=== PATIENT | male | born 1945 | race Caucasian/White ===

== ENCOUNTER 2016-10-28 08:50 | Observation (INO) | payer OTHER ==
[~2016-10-28] VITALS: Ht 180.3 cm; Wt 78.7 kg
[2016-10-28 08:50] VITALS: Ht 180.3 cm; Wt 78.7 kg
[~2016-10-28 08:50] MED LIST: ACET-2158 PO; ALBU8.5H3 IH; ARIP15TA4 PO; BACL10TA PO; IRBE150T19 PO; METH5SOL3 PO; METO-448 PO; MIRT15TA PO; MOM PO; NIT4 SL; SAME MEDS; SERT-165 PO; TEMA7.5C PO; WARF6TAB PO
[2016-10-28] MEDS ORDERED: ALBUTEROL 0.083% (NEB) 2.5 MG/3 ML AMP INH STA (09:04)
[2016-10-28] MEDS ORDERED: IPRATROPIUM (NEB) 0.5 MG/2.5 ML AMP INH STA (09:04)
--- NOTE | 2016-10-28 09:47 | RADRPT ---
PROCEDURE: XR Chest. CLINICAL INDICATION: SOB TECHNIQUE: Single frontal view of the chest was obtained. COMPARISON: Chest x-ray from 08/25/2013 FINDINGS: A left-sided single lead pacemaker is again noted. There is stable mild cardiomegaly. The aortic arch is calcified. There is mild to moderate pulmonary vascular congestion. Underlying bibasilar infiltrates cannot be entirely excluded. There is no significant pleural effusion or pneumothorax. IMPRESSION: Mild to moderate pulmonary vascular congestion. Underlying bibasilar infiltrates cannot be entirely excluded. Stable mild cardiomegaly. Left-sided pacemaker. Aortic atherosclerosis. RPTAT: EE Physician Luca Date Time Electronically viewed and signed by Sandip Bo Physician on 10/28/2016 09:47 RA/
[2016-10-28 09:49] LABS: ADD SCAN DIFF NO
[2016-10-28 09:51] LABS: BASOPHILS % 0.6 % (0.0-2.0); EOSINOPHILS # 0.1 10^3/ul (0.0-0.5); EOSINOPHILS % 1.9 % (0.0-7.0); HEMATOCRIT 40.1 % (42.0-52.0); HEMOGLOBIN 12.8 g/dl (14.0-18.0); LYMPHOCYTES # 0.9 10^3/ul (0.8-2.9); LYMPHOCYTES % 14.5 % (15.0-51.0); MEAN CORPUSCULAR HGB CONC 31.9 g/dl (32.0-37.0); MEAN CORPUSCULAR VOLUME 100.3 fl (82.0-101.0); MEAN PLATELET VOLUME 10.8 fl (7.4-10.4); MONOCYTE # 0.7 10^3/ul (0.3-0.9); MONOCYTES % 10.7 % (0.0-11.0); NEUTROPHIL # 4.5 10^3/ul (1.6-7.5); PLATELET COUNT 142 10^3/UL (140-415); RED CELL DISTRIBUTION WIDTH 13.5 % (11.5-14.5); WHITE BLOOD COUNT 6.3 10^3/ul (4.8-10.8)
[2016-10-28] MEDS ORDERED: CARV3.1260 PO (09:54)
[2016-10-28] MEDS ORDERED: CHOL100062 PO (09:54)
[2016-10-28] MEDS ORDERED: CLOB50SO TOP (09:55)
[2016-10-28] MEDS ORDERED: MOME13HF2 INHALATION (09:56)
[2016-10-28] MEDS ORDERED: MELA3TAB17 PO (09:57)
[2016-10-28] MEDS ORDERED: KETO120S2 TOP (09:57)
[2016-10-28] MEDS ORDERED: MIRT7.5T8 PO (09:58)
[2016-10-28] MEDS ORDERED: NYST15CR28 TOP (09:59)
[2016-10-28] MEDS ORDERED: FUROSEMIDE 40 MG INJ IV ONE (10:00)
[2016-10-28] MEDS ORDERED: QUET100T32 PO (10:00)
[2016-10-28] MEDS ORDERED: RIVA15TA PO (10:00)
[2016-10-28] MEDS ORDERED: SERT50TA6 PO (10:00)
[2016-10-28] MEDS ORDERED: SPIR50TA PO (10:01)
[2016-10-28] MEDS ORDERED: SPIR25TA PO (10:02)
[2016-10-28] MEDS ORDERED: TIOT18CA INHALATION (10:02)
[2016-10-28] MEDS ORDERED: TRAM-40 PO (10:04)
[2016-10-28 10:10] LABS: ALANINE AMINOTRANSFERASE 27 IU/L (13-69); ALBUMIN 4.6 g/dl (3.3-4.9); ALBUMIN/GLOBULIN RATIO 1.64; ALKALINE PHOSPHATASE 58 IU/L (42-121); ANION GAP 12 (8-16); ASPARTATE AMINO TRANSFERASE 19 IU/L (15-46); BILIRUBIN,INDIRECT 0.5 mg/dl (0-1.1); BILIRUBIN,TOTAL 0.5 mg/dl (0.2-1.3); BLOOD UREA NITROGEN 11 mg/dl (7-20); CALCIUM 8.8 mg/dl (8.4-10.2); CARBON DIOXIDE 27 mmol/L (21-31); CHLORIDE 107 mmol/L (97-110); CREATININE 0.98 mg/dl (0.61-1.24); GLUCOSE 153 mg/dl (70-220); POTASSIUM 4.1 mmol/L (3.5-5.1); SODIUM 142 mmol/L (135-144); TOTAL PROTEIN 7.4 g/dl (6.1-8.1)
[2016-10-28 10:29] LABS: TROPONIN-I < 0.012 ng/ml (0.00-0.12)
[2016-10-28 10:31] LABS: INR 1.64; PROTIME 19.5 Sec (12.2-14.2); PT RATIO 1.5
[2016-10-28 10:34] LABS: D-DIMER 560.71 ng/ml (<460)
--- NOTE | 2016-10-28 10:45 | ERA ---
ER Documentation Chief Complaint Date/Time DATE: 10/28/16 TIME: 902 Chief Complaint BIBA to room with complaint of SOB and epigastric discomfort HPI 71-year-old male brought to the emergency department from his care facility for evaluation of shortness of breath. Patient seems to have an underlying psychiatric component and provides only limited history. According to the paramedics, patient was short of breath but no further history was available. There is no mention of fevers, chills, sputum production, chest pain. The triage note indicates epigastric discomfort which the patient has not described to me. Paramedics thought he was "gasping" but was otherwise stable was brought to the emergency department for evaluation. I have reviewed the rater associate pre-hospital care. Pre-hospital vital signs were reviewed. Pre-hospital diagnostic tests were reviewed. ROS All systems reviewed and are negative except as per history of present illness. Medications Home Meds Reported Medications Tramadol Hcl* (Ultram*) 50 Mg Tablet, 50 MG PO BID Y for PAIN, TAB 10/28/16 Tiotropium [place]* (Spiriva*) 18 Mcg Cap.w.dev, 1 CAP INHALATION DAILY, #30 CAP 10/28/16 Spironolactone* (Aldactone*) 25 Mg Tablet, 25 MG PO DAILY, #30 TAB 10/28/16 Sertraline Hcl* (Sertraline Hcl*) 50 Mg Tablet, 50 MG PO DAILY, #30 TAB 10/28/16 Rivaroxaban* (Xarelto*) 15 Mg Tablet, 15 MG PO WITH BREAKFAST DINNE, TAB 10/28/16 Quetiapine Fumarate* (Quetiapine Fumarate*) 100 Mg Tablet, 100 MG PO HS, TAB 10/28/16 Nystatin* (Nystatin*) 15 Gm Cr, 1 APPLIC TOP BID, #1 TUB 10/28/16 Mirtazapine* (Mirtazapine*) 7.5 Mg Tablet, 7.5 MG PO HS, TAB 10/28/16 Melatonin (Melatonin) 3 Mg Tablet.sa, 3 MG PO HS, TAB.SA 10/28/16 Ketoconazole* (Ketoconazole*) 2% - 120 Ml Shampoo, 1 APPLIC TOP DAILY, EA WASH HAIR/SCALP AND RINSE OFF 10/28/16 Mometasone-Formoterol (Dulera) 100-5 Mcg - 13 Gm Hfa.aer.ad, 2 PUFFS INHALATION BID, #1 INHALER 10/28/16 Clobetasol Propionate* (Clobetasol Propionate*) 50 Ml Solution, 1 APPLIC TOP DAILY, #1 BOTTLE 10/28/16 Cholecalciferol* (Vitamin D3*) 1,000 Unit Tablet, 2000 UNIT PO DAILY, TAB 10/28/16 Carvedilol* (Carvedilol*) 3.125 Mg Tablet, 3.125 MG PO BID, #60 TAB 10/28/16 Albuterol Sulfate* (Proair HFA*) 8.5 Gm Hfa.aer.ad, 2 PUFFS IH Q6 Y for WHEEZING AND SOB 11/24/12 Baclofen* (Baclofen*) 10 Mg Tablet, 10 MG PO DAILY Y for MUSCLE SPASMS 11/24/12 Acetaminophen (TYLENOL 325 MG TAB) 325 Mg Tab, 650 MG PO Q4 Y for MILD PAIN LEVEL 1-3 10/22/12 Nitroglycerin (Nitrostat) 25 Tab Subl, 0.4 TAB SL prn, q 5 minutes x3 10/22/12 Temazepam* (Temazepam*) 7.5 Mg Capsule, 7.5 MG PO HS 10/22/12 Discontinued Reported Medications Spironolactone* (Aldactone*) 50 Mg Tablet, 50 MG PO DAILY, #30 TAB 10/28/16 [Same Meds ] No Conflict Check 11/26/12 [Mom] No Conflict Check, 30 ML PO Q2 11/24/12 Warfarin Sodium* (Coumadin*) 6 Mg Tablet, 7 MG PO PM 10/22/12 Sertraline Hcl* (Sertraline Hcl*) 100 Mg Tablet, 100 MG PO HS 10/22/12 Mirtazapine* (Mirtazapine* ODT) 15 Mg/Udtablet Tab.rapdis, 15 MG PO HS 10/22/12 Aripiprazole* (Abilify* Discmelt) 15 Mg/Tab Tab.rapdis, 7.5 MG PO DAILY 10/22/12 Metoprolol Tartrate* (Lopressor*) 25 Mg Tab, 25 MG PO DAILY 10/22/12 Irbesartan* (Avapro*) 150 Mg Tablet, 150 MG PO DAILY 10/22/12 Methadone Hcl* (Methadone*) 5 Mg/5 Ml Solution, 30 MG PO DAILY 10/22/12 Allergies Allergies: Coded Allergies: No Known Allergy (Verified , 11/26/12) PMhx/Soc History of Surgery: No Anesthesia Reaction: No Hx Neurological Disorder: Yes (CVA JUN 2007) Hx Respiratory Disorders: Yes (COPD) Hx Cardiac Disorders: Yes (AFIB, HTN,PACEMAKER) Hx Psychiatric Problems: Yes (DEPRESSION,HX: SUICIDAL IDEATION PER [employer]) Hx Miscellaneous Medical Probl: Yes (Hep C, CVA R sided weakness, htn, alcohol abuse) Hx Alcohol Use: Yes (STOPPED DRINKING APPROX 5 YRS AGO PER PT) Hx Substance Use: Yes (USED TO SMOKE MARIJUANA;NOT ANYMORE PER PT.) Hx Tobacco Use: Yes (STOPPED SMOKING 5 YRS AGO PER PT) Smoking Status: Former smoker FmHx Unknown at this time Physical Exam Vitals Vital Signs Date Time Temp Pulse Resp B/P Pulse Ox O2 Delivery O2 Flow Rate FiO2 10/28/16 09:47 62 20 100 Nasal Cannula 2.0 10/28/16 09:39 Nasal Cannula 2.0 10/28/16 09:08 98.3 69 20 98/71 99 Room Air 10/28/16 09:07 Nasal Cannula 2 10/28/16 08:50 98.3 83 20 147/96 100 Physical Exam GENERAL: Well-developed well-nourished. Mild to moderate respiratory distress HEENT: Pupils equal, round, and reactive to light. EOMI. There is no scleral icterus. NECK: C-spine is soft and supple, there is no meningismus. There is no cervical lymphadenopathy. No JVD LUNGS: Decreased tidal volume. No wheezing. Occasional crackle at both bases HEART: Pacemaker noted. Irregularly irregular rate and rhythm with no murmurs ABDOMEN: Soft, non-tender, non-distended. There are bowel sounds in all four quadrants. No rebound or guarding. EXTREMITIES: There is no peripheral cyanosis or edema. No focal swelling or erythema. NEURO: The patient moves all four extremities with 5/5 strength. Cranial nerves II - XII are intact. Normal gait. Alert and oriented SKIN: There is no apparent rash or petechiae. HEME/LYMPHATIC: There is no evidence of excessive bruising or lymphedema. PSYCHIATRIC: The patient does not appear anxious or depressed. Result Diagram: 10/28/1692910/28/16929 Results 24 hrs Laboratory Tests Test 10/28/16 09:30 White Blood Count 6.310^3/ul Red Blood Count 4.0010^6/ul Hemoglobin 12.8g/dl Hematocrit 40.1% Mean Corpuscular Volume 100.3fl Mean Corpuscular Hemoglobin 32.0pg Mean Corpuscular Hemoglobin Concent 31.9g/dl Red Cell Distribution Width 13.5% Platelet Count 15712^3/UL Mean Platelet Volume 10.8fl Neutrophils % 72.0% Lymphocytes % 14.5% Monocytes % 10.7% Eosinophils % 1.9% Basophils % 0.6% Nucleated Red Blood Cells % 0.0/100WBC Neutrophils # 4.510^3/ul Lymphocytes # 0.910^3/ul Monocytes # 0.710^3/ul Eosinophils # 0.110^3/ul Basophils # 0.010^3/ul Nucleated Red Blood Cells # 0.010^3/ul Prothrombin Time 19.5Sec Prothrombin Time Ratio 1.5 INR International Normalized Ratio 1.64 Activated Partial Thromboplast Time 35.0Sec D-Dimer 560.71ng/ml D-Dimer Comment Sodium Level 142mmol/L Potassium Level 4.1mmol/L Chloride Level 107mmol/L Carbon Dioxide Level 27mmol/L Anion Gap 12 Blood Urea Nitrogen 11mg/dl Creatinine 0.98mg/dl Glucose Level 153mg/dl Lactic Acid Level 1.7mmol/L Calcium Level 8.8mg/dl Total Bilirubin 0.5mg/dl Direct Bilirubin 0.00mg/dl Indirect Bilirubin 0.5mg/dl Aspartate Amino Transf (AST/SGOT) 19IU/L Alanine Aminotransferase (ALT/SGPT) 27IU/L Alkaline Phosphatase 58IU/L Troponin I < 0.012ng/ml Total Protein 7.4g/dl Albumin 4.6g/dl Globulin 2.80g/dl Albumin/Globulin Ratio 1.64 Current Medications Medications (Trade) Dose Ordered Sig/Luis Manuel Route PRN Reason Start Time Stop Time Status Last Admin Dose Admin Albuterol (Proventil 0.083% (Neb)) 5 mg ONCE STAT INH 10/28/16 09:04 10/28/16 09:06 DC 10/28/16 09:44 Ipratropium [place] (Atrovent 0.02% (Neb)) 0.5 mg ONCE STAT INH 10/28/16 09:04 10/28/16 09:06 DC 10/28/16 09:44 Furosemide (Lasix) 40 mg ONCE ONCE IV 10/28/16 10:00 10/28/16 10:01 DC Procedures/MDM Patient was taken to a room, seen and evaluated. Comfort measures were initiated. Diagnostic tests were ordered and reviewed. 3 LEAD RHYTHM STRIP: Atrial fibrillation with controlled ventricular response Staff Scientist EK lead EKG reviewed by myself: Atrial fibrillation with PVCs Right bundle branch block No ST elevation, depression, or T wave inversion Impression: A. fib with nonspecific EKG findings no obvious ST elevation EKG upon arrival to the emergency department interpreted by myself: Atrial fibrillation with PVCs Right bundle branch block No ST elevation, depression, or T wave inversion Impression: A. fib with nonspecific EKG findings no obvious ischemia no change from rater associate EKG RADIOLOGY: reviewed with the radiologist CONSULTATION: hospitalist was notified for admission REEVALUATION: Patient is remained hemodynamically stable. MEDICAL DECISION MAKING: Patient presents for shortness of breath. Differential diagnosis entertained included asthma, pneumonia, other cardiac and pulmonary concerns. After reviewing the patient's diagnostic tests and clinical presentation, patient appears to have new onset congestive heart failure likely secondary to his atrial fibrillation. Patient shows no signs of pneumonia. Given the patient's comorbid conditions, and what seems to be decompensation of CHF, patient will be admitted for diuresis and further diagnostic evaluation. Departure Diagnosis: Primary Impression: CHF (congestive heart failure) Additional Impression: Atrial fibrillation CONSUELO PARIKH Oct 28, 2016 10:45
[2016-10-28] MEDS ORDERED: NACL 0.9% 3 ML SYG IV SCH (12:30)
[2016-10-28] MEDS ORDERED: ALBUTEROL HFA 8 GM INHALER INH PRN (12:30)
[2016-10-28] MEDS ORDERED: DOCUSATE SODIUM 100 MG CAP PO PRN (12:30)
[2016-10-28] MEDS ORDERED: BISACODYL 10 MG SUPP PR PRN (12:30)
[2016-10-28] MEDS ORDERED: HYDROCODONE/APAP (5/325) TAB PO PRN ×2 (12:30)
[2016-10-28] MEDS ORDERED: ACETAMINOPHEN 325 MG TAB PO PRN ×2 (12:30)
[2016-10-28] MEDS ORDERED: traMADol 50 MG TAB PO PRN (12:30)
[2016-10-28] MEDS ORDERED: ONDANSETRON 4 MG INJ IV PRN (12:30)
[2016-10-28] MEDS ORDERED: morphine 2 MG INJ IV PRN (12:30)
[2016-10-28] MEDS ORDERED: MAGNESIUM HYDROXIDE 30ML CUP PO PRN (12:30)
[2016-10-28] MEDS ORDERED: NITROGLYCERIN (SL) 0.4 MG TAB SL SCH (12:30)
[2016-10-28] MEDS ORDERED: ACETAMINOPHEN 650 MG SUPP PR PRN (12:30)
[2016-10-28] MEDS ORDERED: BACLOFEN 10 MG TAB PO PRN (12:30)
[2016-10-28 13:32] VITALS: TEMP 98.6
--- NOTE | 2016-10-28 15:09 | HP ---
Date/Time of Note Date/Time of Note DATE: 10/28/16 TIME: 14:53 Assessment/Plan VTE Prophylaxis VTE Prophylaxis Intervention: SCD's Assessment/Plan Chief Complaint/Hosp Course Impression and plan 1. Dyspnea suspect secondary to CHF. Follow-up on echocardiogram. Start on Lasix. Check follow-up chest radiograph. 2. Atrial fibrillation. Rate controlled at present. Continue on Xarelto. Continue on beta-stephanie. 3. Essential hypertension. Stable at present. Continue antihypertensives and adjust as needed 4. COPD. No active bronchospasm noted at this time. Will provide bronchodilators as needed. 5. History of dyslipidemia. Follow-up on fasting lipid panel. Admission process 40 minutes Discussed plan of care with Dr. Roblero Problems: HPI/ROS Admit Date/Time Admit Date/Time Oct 28, 2016 at 10:46 Hx of Present Illness This is a 71 year male with history of CVA with right-sided weakness, atrial for ablation with pacemaker in place, hyperlipidemia, COPD, hypertension, who did come to [facility] due to reports shortness of breath for 1 day duration. Patient did report that he was in his normal state of health. He stated that he woke up this morning short of breath more notable on exertion. Denies any chest at this time. Denies any fevers fevers. Denies any coughing. On further examination he did have initial chest x-ray that did show him to have some mild to moderate pulmonary vascular congestion. There is also seen some stable mild cardiomegaly and also noted aortic atherosclerosis. Patient at present remains on room air. He does report better breathing. He of note he received Lasix in the ER. We will evaluate him for the aformentiond issues. ROS 12 point review of systems obtained and entirely negative except that mentioned in history of present illness PMH/Family/Social Past Medical History CVA with right-sided weakness, atrial for ablation with pacemaker in place, hyperlipidemia, COPD, hypertension, Social History Alcohol Use: none Smoking Status: Former smoker Drug Use: none Exam/Review of Systems Vital Signs Vitals Vital Signs Date Time Temp Pulse Resp B/P Pulse Ox O2 Delivery O2 Flow Rate FiO2 10/28/16 13:32 98.6 60 12 123/83 98 Room Air 2.0 Exam Constitutional: alert, oriented Psych: nl mood/affect Head: normocephalic Neck: supple, No jvd Respiratory: other (Minimally diminished at lung base) Cardiovascular: other (Pacemaker in place. Atrial fibrillation. Rate controlled.) Gastrointestinal: non-tender, soft Musculoskeletal: nl extremities to inspection Extremities: normal pulses Neurological: ELECTRICAL AUTOMATION ENGINEER II-XII intact, nl mental status, nl speech Skin: nl turgor Labs Result Diagram: 10/28/1692910/28/16 09 Medications Medications Current Medications Albuterol (Ventolin Hfa) 2 puff Q6 PRN INH WHEEZING AND SOB; Start 10/28/16 at 12:30 Baclofen (Lioresal) 10 mg DAILY PRN PO MUSCLE SPASMS; Start 10/28/16 at 12:30 Carvedilol (Coreg) 3.125 mg BID PO ; Start 10/28/16 at 21:00 Cholecalciferol (Vitamin D) 2,000 unit DAILY PO ; Start 10/29/16 at 09:00 Ketoconazole (Nizoral Shampoo) 1 applic DAILY TOP ; Start 10/29/16 at 09:00 Mirtazapine (Remeron) 7.5 mg HS PO ; Start 10/28/16 at 21:00 Nitroglycerin (Nitroglycerin (Sl Tab) 0.4 Mg) 0.4 tab [id number] SL ; Start at 12:30 Nystatin (Nystatin Cr) 1 applic BID TOP ; Start 10/28/16 at 21:00 Quetiapine Fumarate (Seroquel) 100 mg HS PO ; Start 10/28/16 at 21:00 Sertraline HCl (Zoloft) 50 mg DAILY PO ; Start 10/29/16 at 09:00 Spironolactone (Aldactone) 25 mg DAILY PO ; Start 10/29/16 at 09:00 Tiotropium [place] (Spiriva) 1 inh DAILY INH ; Start 10/29/16 at 09:00 Tramadol HCl (Ultram) 50 mg BID PRN PO PAIN; Start 10/28/16 at 12:30 Ondansetron HCl (Zofran Inj) 4 mg Q6H PRN IV NAUSEA AND/OR VOMITING; Start 10/28 at 12:30 Acetaminophen (Tylenol Tab) 650 mg Q6H PRN PO PAIN LEVEL 1-3 OR FEVER; Start at 12:30 Acetaminophen (Tylenol Supp) 650 mg Q6H PRN [place] PAIN LEVEL 1-3 OR FEVER; Start 10/28/16 at 12:30 Acetaminophen/ Hydrocodone Bitart ([place] (5/325)) 1 tab Q6H PRN PO MODERATE PAIN LEVEL 4-6; Start 10/28/16 at 12:30 Acetaminophen/ Hydrocodone Bitart ([place] (5/325)) 2 tab Q6H PRN PO SEVERE PAIN LEVEL 7-10; Start 10/28/16 at 12:30 Morphine Sulfate (morphine) 2 mg Q4H PRN IV SEVERE PAIN LEVEL 7-10; Start at 12:30 Docusate Sodium (Colace) 100 mg Q12H PRN PO CONSTIPATION; Start 10/28/16 at 12: 30 Magnesium Hydroxide (Milk Of Mag) 30 ml DAILY PRN PO CONSTIPATION; Start at 12:30 Bisacodyl (Dulcolax Supp) 10 mg DAILY PRN [place] CONSTIPATION; Start 10/28/16 at 12: 30 Pantoprazole (Protonix Iv) 40 mg DAILY@06 IV ; Start 10/29/16 at 06:00 Furosemide (Lasix) 40 mg DAILY IV ; Start 10/29/16 at 09:00 OCTAVIANO CLEVELAND Oct 28, 2016 15:04
[2016-10-28 15:22] VITALS: BP 113/77; PULSE 71; RESP 18
[2016-10-28 16:18] VITALS: PULSE 60
[2016-10-28] MEDS: RIVAROXABAN 15 MG TABLET PO SCH (18:05)
[2016-10-28 20:08] VITALS: PULSE 65
[2016-10-28 20:50] VITALS: BP 128/74; RESP 16
[2016-10-28] MEDS: QUETIAPINE 100 MG TAB PO SCH (21:27)
[2016-10-28] MEDS: MIRTAZAPINE 15 MG TAB PO SCH (21:28)
[2016-10-28] MEDS: NYSTATIN 15 GM CR TOP SCH (21:28)
[2016-10-28] MEDS ORDERED: ALBUTEROL 18 GM INHALER INH PRN (22:00)
[2016-10-29] VITALS (12 sets, daily range): BP systolic 109–127; BP diastolic 61–94; PULSE 60–82; RESP 18–20
[2016-10-29] MEDS: PANTOPRAZOLE 40 MG INJ IV SCH (06:27)
[2016-10-29] MEDS: KETOCONAZOLE 2% SHAMPOO 120 ML BTL TOP SCH (08:30)
[2016-10-29] MEDS: NYSTATIN 15 GM CR TOP SCH ×2 (08:30→20:23)
[2016-10-29] MEDS: TIOTROPIUM 18 MCG CAPSULE INHA DEV INH SCH (08:31)
[2016-10-29] MEDS: SERTRALINE 50 MG TAB PO SCH (08:31)
[2016-10-29] MEDS: SPIRONOLACTONE 25 MG TAB PO SCH (08:31)
[2016-10-29] MEDS: CHOLECALCIFEROL 1,000 UNIT TAB PO SCH (08:31)
[2016-10-29] MEDS: RIVAROXABAN 15 MG TABLET PO SCH ×2 (08:32→18:05)
[2016-10-29] MEDS: FUROSEMIDE 40 MG INJ IV SCH (08:32)
[2016-10-29 09:08] LABS: ALBUMIN 3.8 g/dl (3.3-4.9); ALBUMIN/GLOBULIN RATIO 1.4; BILIRUBIN,INDIRECT 0.7 mg/dl (0-1.1); BILIRUBIN,TOTAL 0.7 mg/dl (0.2-1.3); CALCIUM 8.9 mg/dl (8.4-10.2); CREATININE 0.98 mg/dl (0.61-1.24); MAGNESIUM 1.7 mg/dl (1.7-2.5); PHOSPHORUS 3.4 mg/dl (2.5-4.9); POTASSIUM 3.6 mmol/L (3.5-5.1); TOTAL PROTEIN 6.5 g/dl (6.1-8.1)
[2016-10-29 09:17] LABS: T3 UPTAKE 45.1 % (23.5-40.5)
[2016-10-29 09:31] LABS: THYROID STIMULATING HORMONE 1.3 MIU/L (0.465-4.680)
--- NOTE | 2016-10-29 15:41 | PN ---
Date/Time of Note Date/Time of Note DATE: 10/29/16 TIME: 15:27 Assessment/Plan VTE Prophylaxis VTE Prophylaxis Intervention: other (xarelto) Lines/Catheters IV Catheter Type (from [facility]): [facility] Urinary Cath still in place: No Assessment/Plan Chief Complaint/Hosp Course Impression and plan 1. Dyspnea suspect secondary to CHF. echo pending. continue lasix. CXR pending 2. Atrial fibrillation. Rate controlled at present. Continue on Xarelto. Continue on beta-stephanie. 3. Essential hypertension. Stable at present. Continue antihypertensives and adjust as needed 4. COPD. No active bronchospasm noted at this time. Will provide bronchodilators as needed.. Will provide with o2 as needed 5. History of dyslipidemia. on low lfast/low cholesterol diet Disposition and Plan. continue on diuretics. monitor for clinical improvement. echo pending Discussed plan of care with Dr. Roblero Problems: Subjective 24 Hr Interval Summary Free Text/Dictation denies any chest pain. does report some better breathing Exam/Review of Systems Vital Signs Vitals Vital Signs Date Time Temp Pulse Resp B/P Pulse Ox O2 Delivery O2 Flow Rate FiO2 10/29/16 12:02 60 10/29/16 11:21 98.2 127/94 10/29/16 07:36 18 92 10/28/16 15:22 High Flow 10/28/16 13:32 2.0 Exam Constitutional: alert, oriented Neck: supple Gastrointestinal: non-tender, soft Musculoskeletal: nl extremities to inspection Extremities: normal pulses Results Result Diagram: 10/28/16 0930 10/29/16 0711 Results 24 hrs Laboratory Tests Test 10/29/16 07:11 Sodium Level 143 Potassium Level 3.6 Chloride Level 106 Carbon Dioxide Level 26 Anion Gap 15 Blood Urea Nitrogen 15 Creatinine 0.98 Glucose Level 124 Hemoglobin A1c 6.6 H Calcium Level 8.9 Phosphorus Level 3.4 Magnesium Level 1.7 Total Bilirubin 0.7 Direct Bilirubin 0.00 Indirect Bilirubin 0.7 Aspartate Amino Transf (AST/SGOT) 18 Alanine Aminotransferase (ALT/SGPT) 30 Alkaline Phosphatase 48 B-Type Natriuretic Peptide 2070 H Total Protein 6.5 Albumin 3.8 Globulin 2.70 Albumin/Globulin Ratio 1.40 Triglycerides Level 43 Cholesterol Level 79 L LDL Cholesterol, Calculated 44 HDL Cholesterol 26 L Cholesterol/HDL Ratio 3.0 Thyroid Stimulating Hormone (TSH) 1.300 Free Thyroxine Index 2.57 Thyroxine (T4) 5.7 Triiodothyronine (T3) Uptake 45.1 H Medications Medications Current Medications Baclofen (Lioresal) 10 mg DAILY PRN PO MUSCLE SPASMS; Start 10/28/16 at 12:30 Carvedilol (Coreg) 3.125 mg BID PO Last administered on 10/29/16 08:32; Admin Dose 3.125 MG; Start 10/28/16 at 21:00 Cholecalciferol (Vitamin D) 2,000 unit DAILY PO Last administered on 10/29/16 08:31; Admin Dose 2,000 UNIT; Start 10/29/16 at 09:00 Ketoconazole (Nizoral Shampoo) 1 applic DAILY TOP Last administered on 08:30; Admin Dose 1 APPLIC; Start 10/29/16 at 09:00 Mirtazapine (Remeron) 7.5 mg HS PO Last administered on 10/28/16 21:28; Admin Dose 7.5 MG; Start 10/28/16 at 21:00 Nitroglycerin (Nitroglycerin (Sl Tab) 0.4 Mg) 0.4 tab [id number] SL ; Start at 12:30 Nystatin (Nystatin Cr) 1 applic BID TOP Last administered on 10/29/16 08:30; Admin Dose 1 APPLIC; Start 10/28/16 at 21:00 Quetiapine Fumarate (Seroquel) 100 mg HS PO Last administered on 10/28/16 21:27 ; Admin Dose 100 MG; Start 10/28/16 at 21:00 Sertraline HCl (Zoloft) 50 mg DAILY PO Last administered on 10/29/16 08:31; Admin Dose 50 MG; Start 10/29/16 at 09:00 Spironolactone (Aldactone) 25 mg DAILY PO Last administered on 10/29/16 08:31 ; Admin Dose 25 MG; Start 10/29/16 at 09:00 Tiotropium [place] (Spiriva) 1 inh DAILY INH Last administered on 10/29/16 08: 31; Admin Dose 1 INH; Start 10/29/16 at 09:00 Tramadol HCl (Ultram) 50 mg BID PRN PO PAIN; Start 10/28/16 at 12:30 Ondansetron HCl (Zofran Inj) 4 mg Q6H PRN IV NAUSEA AND/OR VOMITING; Start 10/28 at 12:30 Acetaminophen (Tylenol Tab) 650 mg Q6H PRN PO PAIN LEVEL 1-3 OR FEVER; Start at 12:30 Acetaminophen (Tylenol Supp) 650 mg Q6H PRN [place] PAIN LEVEL 1-3 OR FEVER; Start 10/28/16 at 12:30 Acetaminophen/ Hydrocodone Bitart ([place] (5/325)) 1 tab Q6H PRN PO MODERATE PAIN LEVEL 4-6; Start 10/28/16 at 12:30 Acetaminophen/ Hydrocodone Bitart ([place] (5/325)) 2 tab Q6H PRN PO SEVERE PAIN LEVEL 7-10; Start 10/28/16 at 12:30 Morphine Sulfate (morphine) 2 mg Q4H PRN IV SEVERE PAIN LEVEL 7-10; Start at 12:30 Docusate Sodium (Colace) 100 mg Q12H PRN PO CONSTIPATION; Start 10/28/16 at 12: 30 Magnesium Hydroxide (Milk Of Mag) 30 ml DAILY PRN PO CONSTIPATION; Start at 12:30 Bisacodyl (Dulcolax Supp) 10 mg DAILY PRN [place] CONSTIPATION; Start 10/28/16 at 12: 30 Pantoprazole (Protonix Iv) 40 mg DAILY@06 IV Last administered on 10/29/16 06: 27; Admin Dose 40 MG; Start 10/29/16 at 06:00 Furosemide (Lasix) 40 mg DAILY IV Last administered on 10/29/16 08:32; Admin Dose 40 MG; Start 10/29/16 at 09:00 Albuterol (Ventolin Hfa) 2 puff Q6H PRN INH WHEEZING/SOB; Start 10/28/16 at 22: 00 OCTAVIANO CLEVELAND Oct 29, 2016 15:41
[2016-10-29] MEDS: MIRTAZAPINE 15 MG TAB PO SCH (20:22)
[2016-10-29] MEDS: QUETIAPINE 100 MG TAB PO SCH (20:22)
[2016-10-29] MEDS ORDERED: ZOLPIDEM 5 MG TAB PO PRN (22:30)
[2016-10-30] VITALS (9 sets, daily range): BP systolic 105–123; BP diastolic 73–80; PULSE 61–71; RESP 18–20
[2016-10-30] MEDS: PANTOPRAZOLE 40 MG INJ IV SCH (05:59)
[2016-10-30] MEDS: TIOTROPIUM 18 MCG CAPSULE INHA DEV INH SCH (08:53)
[2016-10-30] MEDS: CHOLECALCIFEROL 1,000 UNIT TAB PO SCH (08:53)
[2016-10-30] MEDS: SPIRONOLACTONE 25 MG TAB PO SCH (08:54)
[2016-10-30] MEDS: RIVAROXABAN 15 MG TABLET PO SCH (08:54)
[2016-10-30] MEDS: SERTRALINE 50 MG TAB PO SCH (08:54)
[2016-10-30] MEDS: NYSTATIN 15 GM CR TOP SCH (08:54)
[2016-10-30] MEDS: KETOCONAZOLE 2% SHAMPOO 120 ML BTL TOP SCH (08:55)
[2016-10-30] MEDS: FUROSEMIDE 40 MG INJ IV SCH (08:55)
[2016-10-30] MEDS ORDERED: FURO-110 PO (13:14)
--- NOTE | 2016-10-30 13:17 | PDOCDIS ---
Discharge Instructions DIAGNOSIS Discharge Diagnosis: 1. Dyspnea secondary suspect CHF 2. A. fib 3. Hypertension 4. COPD CONDITION Patient Condition: Stable HOME CARE INSTRUCTIONS: Special Diet: CARDIAC DIET. FOLLOW UP/APPOINTMENTS Appointments 1. Follow-up with your primary care provider within a week OCTAVIANO CLEVELAND Oct 30, 2016 13:17
[2016-10-30 13:54] LABS: ADD SCAN DIFF NO
--- NOTE | 2016-10-30 14:05 | RADRPT ---
Echocardiogram Report Patient Name: ROLANDO GRANT Gender: Male Date: 1945 Study Date: 29-Oct-2016 Price Analyst: FARHAN Location: [facility] Height(Cm): 180 Weight(Kg): 85 BSA: 2.06 Ref. Physician: OCTAVIANO CLEVELAND Quality: Adequate Procedures: Transthoracic echocardiogram with complete 2D, M-Mode, and Doppler examination. Indications: Suspect Congestive Heart Failure. 2D/M Mode Doppler Measurement Value Normal Ranges Measurement Value Normal Ranges AoR Diam MM 3.2 cm AV Peak Rojelio 1.0 m/sec ACS MM 2.2 cm AV Peak PG 3.9 mmHg LVIDd 2D 5.2 3.5 - 5.6 cm LVOT Peak Rojelio 0.8 m/sec LVIDs 2D 3.7 2.1 - 4.1 cm LVOT Peak PG 2.8 mmHg LVPWd 2D 0.9 0.6 - 1.1 cm MV E Peak Rojelio 1.4 m/sec IVSd 2D 0.8 0.6 - 1.1 cm MV A Peak Rojelio 0.3 m/sec EDV 2D 128.4 cm3 MV E/A 5.3 ESV 2D 49.3 cm3 MV Decel Time 178 msec LA Dimen 2D 4.9 2.3 - 4.0 cm MV Decel Lander 8 MV E/A 5.3 TR Peak Rojelio 3.3 m/sec TR Peak PG 44.1 mmHg PV Peak Rojelio 0.7 m/sec PV Peak PG 2.0 mmHg RVSP 47.1 mmHg Findings Left Ventricle: Normal left ventricular systolic function. Normal left ventricular cavity size. Normal left ventricular wall thickness. Ejection fraction is visually estimated at 5560 %. Tissue Doppler/Mitral Doppler indices are consistent with restrictive physiology with markedly elevated left atrial pressure (Stage IIIIV diastolic dysfunction). E/E`=8. Right Ventricle: Normal right ventricular systolic function. Mild enlargement of right ventricle. Pacemaker right heart. Left Atrium: There is moderate enlargement of left atrium. LA Volume Index=78. Right Atrium: There is mild enlargement of right atrium. Atrial Septum: Normal atrial septum. Mitral Valve: Moderate mitral valve prolapse involving the posterior mitral leaflet. Severe mitral valve regurgitation, eccentric jet. MR RV is 97 by PISA. Aortic Valve: No significant aortic stenosis or insufficiency. Normal trileaflet aortic valve structure. Tricuspid Valve: Normal appearance of the tricuspid valve. Estimated peak PA systolic pressure 47 mmHg. There is moderate tricuspid regurgitation. Pulmonic Valve: Normal pulmonic valve appearance. There is trace pulmonic regurgitation. Pericardium: Normal pericardium with no significant pericardial effusion. Aorta: Normal aortic root. IVC: Normal size and normal respiratory collapse consistent with normal right atrial pressure. Pulmonary Artery: Normal pulmonary artery size. Conclusions 1.Normal left ventricular systolic function. Normal left ventricular cavity size. Normal left ventricular wall thickness. Ejection fraction is visually estimated at 55-60 %. Tissue Doppler/Mitral Doppler indices are consistent with restrictive physiology with markedly elevated left atrial pressure (Stage III-IV diastolic dysfunction). E/E`=8. 2.Normal right ventricular systolic function. Mild enlargement of right ventricle. Pacemaker right heart. 3.There is moderate enlargement of left atrium. LA Volume Index=78. 4.There is mild enlargement of right atrium. 5.Moderate mitral valve prolapse involving the posterior mitral leaflet. Severe mitral valve regurgitation, eccentric jet. MR RV is 97 by PISA. 6.Normal appearance of the tricuspid valve. Estimated peak PA systolic pressure 47 mmHg. There is moderate tricuspid regurgitation. 7.Normal pulmonic valve appearance. There is trace pulmonic regurgitation. Electronically Signed By: Sushant Rene 30-Oct-2016 14:04:40 -0700 Patient Name: ROLANDO GRANT Study Date: 29-Oct-2016 [id number]
[2016-10-30 14:17] LABS: BASOPHIL # 0.1 10^3/ul (0.0-0.1); BASOPHILS % 0.7 % (0.0-2.0); EOSINOPHILS # 0.2 10^3/ul (0.0-0.5); EOSINOPHILS % 2.2 % (0.0-7.0); HEMATOCRIT 43.7 % (42.0-52.0); HEMOGLOBIN 14.4 g/dl (14.0-18.0); LYMPHOCYTES # 1.3 10^3/ul (0.8-2.9); LYMPHOCYTES % 17.5 % (15.0-51.0); MEAN CORPUSCULAR HEMOGLOBIN 32.1 pg (29.0-33.0); MEAN CORPUSCULAR VOLUME 97.3 fl (82.0-101.0); MEAN PLATELET VOLUME 10.7 fl (7.4-10.4); MONOCYTE # 0.8 10^3/ul (0.3-0.9); MONOCYTES % 11.3 % (0.0-11.0); NEUTROPHIL # 5.1 10^3/ul (1.6-7.5); PLATELET COUNT 201 10^3/UL (140-415); RED BLOOD COUNT 4.49 10^6/ul (4.70-6.10); RED CELL DISTRIBUTION WIDTH 13.3 % (11.5-14.5); WHITE BLOOD COUNT 7.4 10^3/ul (4.8-10.8)
[2016-10-30 14:18] LABS: CALCIUM 9.8 mg/dl (8.4-10.2); CREATININE 1.18 mg/dl (0.61-1.24); POTASSIUM 3.8 mmol/L (3.5-5.1)
[2016-10-31] MEDS ORDERED: PANTOPRAZOLE (EC) 40 MG TAB PO SCH (06:00)
--- NOTE | 2016-11-01 18:23 | DS ---
DATE OF ADMISSION: 10/28/2016 DATE OF DISCHARGE: 10/30/2016 DISCHARGE DIAGNOSES: 1. Dyspnea secondary to congestive heart failure. 2. Atrial fibrillation. 3. Essential hypertension. 4. History of chronic obstructive pulmonary disease. 5. Dyslipidemia. HOSPITAL COURSE: This is a 71-year-old male who currently resides at a [facility] facility with also history of accident with right-sided weakness. He came to [facility] due to reports of shortness of breath for 1 day duration. The patient did report that he was in his neyda l state of health. However, on the morning of his admission, he did have some shortness of breath, more notable on exertion. He denied any other chest pain. He did have an x-ray that did show him t o have some mild to moderate pulmonary vascular congestion, likely secondary to the congestive heart failure. He was placed on diuretic with good response. He did have an echocardiogram done. Eject ion fraction of 55% to 60% with stage III to stage IV diastolic dysfunction. He was noted with mode rate enlargement of left atrium, as well as moderate mitral valve prolapse involving the posterior m itral leaflet. The patient was advised to follow up with Dr. Sushant Rene, automatic dry starch operator, who did r eport he would be able to see the patient as outpatient. During his course of stay, he did improve. He was otherwise optimized medically. He was continued on antihypertensives for his hypertension and Xarelto and beta stephanie for his atrial fibrillation. He is also with a history of COPD and pro vided with bronchodilators as needed. He was also placed on low fat, low cholesterol diet for his d yslipidemia. During his course of stay, he did improve. The plan of care was discussed with j carlos ponce and patient did verbalize his understanding. On the day of discharge, the patient was in stable c ondition. Discharge physical exam and vital signs are stable. DISCHARGE CONDITION: Stable. DISCHARGE PLAN 1. The patient's diet is cardiac. 2. The patient to follow up with his primary care provider within a week. DISCHARGE MEDICATIONS: 1. Lasix 20 mg p.o. every day. 2. Tylenol 650 mg p.o. q.4 hours as needed for pain. 3. ProAir HFA 2 puffs q.6 hours as needed for shortness of breath. 4. Baclofen 10 mg p.o. daily. 5. Carvedilol 3.125 mg p.o. b.i.d. 6. Vitamin D3 at 2000 units p.o. every day. 7. Ketaconazole 1 application topically daily. 8. Melatonin 3 mg p.o. at bedtime. 9. Mirtazapine 7.5 mg p.o. at bedtime. 10. Dulera 100/5 mcg 2 puffs inhaled b.i.d. 11. Nitrostat 0.4 mg sublingual every 5 minutes as needed for chest pain x3. 12. Nystatin 1 application topically b.i.d. 13. Xarelto 50 mg p.o. with breakfast. 14. Sertraline 50 mg p.o. daily. 15. Spironolactone 25 mg p.o. daily. 16. Temazepam 7.5 mg p.o. at bedtime. 17. Spiriva 1 cap inhaled every day. 18. Tramadol 50 mg p.o. b.i.d. as needed for pain. DISCHARGE PROCESS TIME: 40 minutes. Discussed plan of care with Dr. Roblero. Dictated By: OCTAVIANO [place] [employer]ISH[employer] for HAMMAD ROBLERO MD RR/NTS Conf#: [id number] DID#: [id number] CC: HAMMAD ROBLERO MD;*End*
== END 2016-10-30 16:30 | disposition home or self-care (01) ==
LOC: E/R 08:50 → MS4 10:46
PROVIDERS: ADMIT Internal Medicine; ATTEND Internal Medicine
DX: I11.0 Hypertensive heart disease with heart failure (principal); I50.9 Heart failure, unspecified; I48.91 Unspecified atrial fibrillation; J44.9 Chronic obstructive pulmonary disease, unspecified; E78.5 Hyperlipidemia, unspecified; Z79.01 Long term (current) use of anticoagulants; Z95.0 Presence of cardiac pacemaker; F32.9 Major depressive disorder, single episode, unspecified; I69.351 Hemiplegia and hemiparesis following cerebral infarction affecting right dominant side; F10.21 Alcohol dependence, in remission; Z87.891 Personal history of nicotine dependence
CPT/HCPCS: 36415; 71010; 80048; 80053; 80061; 83036; 83605; 83735; 83880; 84100; 84436; 84443; 84479; 84484; 85025; 85378; 85610; 85730; 87040; 87081; 93005; 93306; 94664; 96374; 96375; 96376; 99285; C9113; G0378; J1940

== ENCOUNTER 2017-09-07 18:31 | Emergency (ER) | END 2017-09-07 23:55 | disposition home or self-care (01) ==

== ENCOUNTER 2019-01-06 21:49 | Emergency (ER) | payer OTHER ==
[~2019-01-06] VITALS: Ht 177.8 cm; Wt 80.0 kg
[~2019-01-06 21:49] MED LIST changes: -ACET-2158 PO; +ALBU18HF INHALATION; -ALBU8.5H3 IH; -ARIP15TA4 PO; +ARIP20TA5 PO; +AZIT250T PO; +CALC-44 PO; +CARV3.1260 PO; +DOCU-159 PO; +FURO-109 PO; -IRBE150T19 PO; +LORA0.5T PO; -METH5SOL3 PO; -METO-448 PO; -MIRT15TA PO; +MIRT15TA5 PO; -MOM PO; -NIT4 SL; +NITR0.4T39 SL; +PRED20TA PO; +RIVA15TA PO; -SAME MEDS; -SERT-165 PO; +SPIR25TA PO; -WARF6TAB PO
[2019-01-06 21:56] VITALS: Ht 177.8 cm; Wt 80.0 kg
--- NOTE | 2019-01-06 22:13 | ERD ---
ER Documentation Chief Complaint Chief Complaint anxiety, insomnia x 1.5 days, new sleeping med not helping HPI This is a pleasant 73-year-old male presents for anxiety and insomnia. Patient states that he is currently taking oral temazepam. He denies any chest pain or shortness of breath, he has not had any nausea vomiting, no suicidal homicidal ideations, no other complaints. ROS All systems reviewed and are negative except as per history of present illness. Medications Home Meds Active Scripts Furosemide* (Lasix*) 40 Mg Tablet, 40 MG PO DAILY, #10 TAB Prov:YARIEL MCFADDEN DO 09/07/17 Reported Medications Nitroglycerin* (Nitrostat*) 0.4 Mg Tab.subl, 0.4 MG SL Q5MIN PRN for CHEST PAIN, BOTTLE 09/07/17 Lorazepam* (Lorazepam*) 0.5 Mg Tablet, 0.5 MG PO BID PRN for ANXIETY, TAB 09/07/17 Baclofen* (Baclofen*) 10 Mg Tablet, 10 MG PO QHS, TAB 09/07/17 Albuterol Sulfate* (Ventolin HFA*) 18 Gm Hfa.aer.ad, 2 PUFF INHALATION Q4H, #1 INHALER 09/07/17 Temazepam* (Temazepam*) 7.5 Mg Capsule, 7.5 MG PO HS PRN for INSOMNIA, CAP 09/07/17 Spironolactone* (Aldactone*) 25 Mg Tablet, 25 MG PO DAILY, #30 TAB 09/07/17 Rivaroxaban* (Xarelto*) 15 Mg Tablet, 15 MG PO WITH BREAKFAST , TAB 09/07/17 Mirtazapine* (Mirtazapine*) 15 Mg Tablet, 7.5 MG PO HS, TAB 09/07/17 Docusate Sodium* (Docusate Sodium*) 100 Mg Capsule, 100 MG PO BID, #60 CAP 09/07/17 Carvedilol* (Carvedilol*) 3.125 Mg Tablet, 3.125 MG PO BID, #60 TAB 09/07/17 Calcium Carbonate/Vitamin D3 (SUPER CALCIUM 600 + D3 TABLET) 1 Each Tablet, 1 EACH PO BID, TAB 09/07/17 Aripiprazole* (Abilify*) 20 Mg Tablet, 20 MG PO QHS, #30 TAB 09/07/17 Allergies Allergies: Coded Allergies: No Known Allergy (Verified , 09/07/17) PMhx/Soc History of Surgery: Yes (Pacemaker) Anesthesia Reaction: No Hx Neurological Disorder: No Hx Respiratory Disorders: Yes (COPD) Hx Cardiac Disorders: Yes (Pacemaker,AFib) Hx Psychiatric Problems: Yes (Depression,Anxiety) Hx Miscellaneous Medical Probl: Yes (CVAMuscle Spasms) Hx Alcohol Use: No Hx Substance Use: No Hx Tobacco Use: Yes Physical Exam Vitals Vital Signs Date Temp Pulse Resp B/P (MAP) Pulse Ox O2 O2 Flow FiO2 Time Delivery Rate 01/06/19 98.7 88 20 124/83 93 21:56 (97) Physical Exam Const: No acute distress Head: Atraumatic Eyes: Normal Conjunctiva ENT: Normal External Ears, Nose and Mouth. Neck: Full range of motion. No meningismus. Resp: Clear to auscultation bilaterally Cardio: Regular rate and rhythm, no murmurs Abd: Soft, non tender, non distended. Normal bowel sounds Skin: No petechiae or rashes Back: No midline or flank tenderness Ext: No cyanosis, or edema Neur: Awake and alert Psych: Normal Mood and Affect. No suicidal or homicidal ideation Procedures/MDM 73-year-old male presents for evaluation of insomnia. On exam he appears well- nourished and well-hydrated, with no acute psychiatric complaints. He is given 1 mg IM Ativan, at this point I feel patient stable for outpatient management at discharge she was in no distress. Departure Diagnosis: Primary Impression: Anxiety Additional Impression: Insomnia Insomnia type: unspecified Qualified Codes: G47.00 - Insomnia, unspecified Patient Instructions: BROOKLYN Diaz MD Jan 06, 2019 22:13
[2019-01-06] MEDS ORDERED: LORAZEPAM 2 MG INJ IM ONE (22:30)
[2019-01-07 01:22] VITALS: BP 114/81; PULSE 82; RESP 18
== END 2019-01-07 01:23 | disposition home or self-care (01) ==
LOC: E/R 21:49
DX: F41.9 Anxiety disorder, unspecified (principal); J44.9 Chronic obstructive pulmonary disease, unspecified; I48.91 Unspecified atrial fibrillation; F17.210 Nicotine dependence, cigarettes, uncomplicated; G47.00 Insomnia, unspecified; R40.2142 Coma scale, eyes open, spontaneous, at arrival to emergency department; R40.2252 Coma scale, best verbal response, oriented, at arrival to emergency department; R40.2362 Coma scale, best motor response, obeys commands, at arrival to emergency department; Z95.0 Presence of cardiac pacemaker; Z86.73 Personal history of transient ischemic attack (TIA), and cerebral infarction without residual deficits
CPT/HCPCS: 96372; 99284; J2060

== ENCOUNTER 2019-01-13 19:05 | Emergency (ER) | payer OTHER ==
[~2019-01-13] VITALS: Ht 177.8 cm; Wt 78.0 kg
[2019-01-13] MEDS ORDERED: predniSONE 20 MG TAB PO STA (19:08)
[2019-01-13] MEDS ORDERED: IPRATROPIUM (NEB) 0.5 MG/2.5 ML AMP NEB STA (19:08)
[2019-01-13] MEDS ORDERED: ALBUTEROL 0.083% (NEB) 2.5 MG/3 ML AMP NEB STA (19:08)
[2019-01-13 19:14] VITALS: Ht 177.8 cm; Wt 78.0 kg
[2019-01-13] MEDS ORDERED: AZITHROMYCIN 500 MG TAB PO ONE (20:30)
[2019-01-13 20:59] VITALS: BP 143/88; PULSE 82; RESP 24
== END 2019-01-13 21:01 | disposition home or self-care (01) ==
LOC: E/R 19:05
DX: J44.1 Chronic obstructive pulmonary disease with (acute) exacerbation (principal); I48.91 Unspecified atrial fibrillation; Z95.0 Presence of cardiac pacemaker; Z87.891 Personal history of nicotine dependence
CPT/HCPCS: 71045; 80048; 84484; 85025; 93005; 94664; 99285; J7512